=== PATIENT | female | born 1945 | race Caucasian/White ===

== ENCOUNTER 2016-10-26 10:51 | Day surgery (SDC) | payer MEDICARE ==
[2016-10-26 11:42] LABS: HEMATOCRIT 39.6 % (36.0-47.0); HEMOGLOBIN 13.1 g/dL (12.0-15.5); HGB HCT DIFFERENCE -0.3; MEAN CORPUSCULAR HEMOGLOBIN 27.7 pg (27.0-33.4); MEAN CORPUSCULAR VOLUME 84 fl (80-97); RED BLOOD COUNT 4.73 10^6/uL (3.72-5.28); RED CELL DISTRIBUTION WIDTH 13.7 % (11.5-14.0); WHITE BLOOD COUNT 11.2 10^3/uL (4.0-10.5)
[2016-10-26 12:03] LABS: BLOOD UREA NITROGEN 17 mg/dL (7-20)
[2016-10-26 16:31] VITALS: BP 126/34
== END 2016-10-26 11:15 | disposition home or self-care (01) ==
LOC: RAD 10:51
PROVIDERS: ATTEND Internal Medicine Medical Oncology
PROC: 0W9F3ZZ Drainage of Abdominal Wall, Percutaneous Approach (ICD-10-PCS; principal; 2016-10-26)
DX: R19.00 Intra-abdominal and pelvic swelling, mass and lump, unspecified site (principal); R18.8 Other ascites; C78.6 Secondary malignant neoplasm of retroperitoneum and peritoneum; C56.9 Malignant neoplasm of unspecified ovary; Z01.812 Encounter for preprocedural laboratory examination
CPT/HCPCS: 36415; 49083; 82565; 84520; 85027; 85610; 85730; 88305; 88341; 88342

== ENCOUNTER → 2016-11-03 | Day surgery (SDC) | payer MEDICARE | LOC: RAD 08:47 | PROVIDERS: ATTEND Internal Medicine Medical Oncology | PROC: 07BC3ZX Excision of Pelvis Lymphatic, Percutaneous Approach, Diagnostic (ICD-10-PCS; principal; 2016-11-03) | DX: R18.0 Malignant ascites (principal); C78.6 Secondary malignant neoplasm of retroperitoneum and peritoneum; R19.00 Intra-abdominal and pelvic swelling, mass and lump, unspecified site | CPT/HCPCS: 38505; 76942; 88172; 88305; 88313; 88341; 88342 ==

== ENCOUNTER 2016-11-08 10:04 | Day surgery (SDC) | payer MEDICARE ==
[2016-11-08 10:40] LABS: HEMATOCRIT 40.9 % (36.0-47.0); HEMOGLOBIN 13.3 g/dL (12.0-15.5); MEAN CORPUSCULAR HEMOGLOBIN 27.4 pg (27.0-33.4); MEAN CORPUSCULAR HGB CONC 32.4 g/dL (32.0-36.0); MEAN CORPUSCULAR VOLUME 85 fl (80-97); RED BLOOD COUNT 4.84 10^6/uL (3.72-5.28); RED CELL DISTRIBUTION WIDTH 14.2 % (11.5-14.0); WHITE BLOOD COUNT 14.4 10^3/uL (4.0-10.5)
[2016-11-08 10:49] LABS: PROTHROMBIN TIME 13.6 SEC (11.4-15.4)
[2016-11-08 10:50] LABS: PARTIAL THROMBOPLASTIN TIME 29.7 SEC (23.5-35.8)
[2016-11-08 11:07] LABS: BLOOD UREA NITROGEN 14 mg/dL (7-20); CREATININE RESULT 0.96 mg/dL (0.52-1.25)
[2016-11-08 13:16] VITALS: BP 130/58
== END 2016-11-08 12:45 | disposition home or self-care (01) ==
LOC: RAD 10:04
PROVIDERS: ATTEND Internal Medicine Medical Oncology
PROC: 0W9G3ZZ Drainage of Peritoneal Cavity, Percutaneous Approach (ICD-10-PCS; principal; 2016-11-08)
DX: R18.0 Malignant ascites (principal); Z79.01 Long term (current) use of anticoagulants
CPT/HCPCS: 36415; 49083; 82565; 84520; 85027; 85610; 85730

== ENCOUNTER 2016-11-21 10:58 | Day surgery (SDC) | payer MEDICARE ==
[2016-11-21 11:40] LABS: HEMATOCRIT 36.8 % (36.0-47.0); HEMOGLOBIN 12.1 g/dL (12.0-15.5); HGB HCT DIFFERENCE -0.5; MEAN CORPUSCULAR HGB CONC 32.9 g/dL (32.0-36.0); MEAN CORPUSCULAR VOLUME 82 fl (80-97); RED BLOOD COUNT 4.49 10^6/uL (3.72-5.28); RED CELL DISTRIBUTION WIDTH 14.5 % (11.5-14.0); WHITE BLOOD COUNT 2.9 10^3/uL (4.0-10.5)
[2016-11-21 11:52] LABS: PARTIAL THROMBOPLASTIN TIME 29.8 SEC (23.5-35.8); PROTHROMBIN TIME 15.4 SEC (11.4-15.4)
[2016-11-21 12:01] LABS: BLOOD UREA NITROGEN 17 mg/dL (7-20); CREATININE RESULT 0.93 mg/dL (0.52-1.25)
[2016-11-21 15:51] VITALS: BP 132/54
--- NOTE | 2016-11-21 15:52 | RADIOLOGY REPORT (SQ) ---
EXAM DESCRIPTION: U/S ABD PARACENTESIS COMPLETED DATE/TIME: 11/21/2016 2:48 pm REASON FOR STUDY: ASCITES COMPARISON None. LIMITATIONS: None. PROCEDURE: After obtaining informed consent, the patient was brought to the ultrasound suite. The p rocedure was performed with the patient on a gurney. Ultrasound was used to identify a prominent poc ket of ascites in the right lower quadrant. An appropriate access site was selected. The patient wa s prepped and draped in usual sterile fashion. The access site was anesthetized with 10 mL 1% lidoc maranda. A Fqmf-K-Kaqnftuq needle was advanced into the fluid. After aspiration of fluid the needle, t he catheter was advanced off the needle into the fluid. A total of 5,250 mL of serosanguineous fluid was removed. The patient tolerated the procedure well left the department in satisfactory condition. IMPRESSION: Successful ultrasound-guided paracentesis COMMENT: Patient medication list reviewed: Yes- Quality ID# [id number]:Eligible professional attests to doc umenting in the medical record they obtained, updated, or reviewed the patient's current medications. Quality ID #76: The patient was prepped and draped using maximum sterile barrier technique including cap, mask, sterile gown, sterile gloves, a large sterile sheet, hand hygiene, and 2% Chlorhexidine fo r cutaneous antisepsis. When ultrasound is used, sterile ultrasound techniques are followed requiring sterile gel and sterile probes. Quality ID #145: Final reports for procedures using fluoroscopy that document radiation exposure juliette floyd, or exposure time and number of fluorographic images (if radiation exposure indices are not avail able) TECHNICAL DOCUMENTATION: JOB ID: [id number] [employer]- All Rights Reserved
== END 2016-11-21 15:50 | disposition home or self-care (01) ==
LOC: RAD 10:58
PROVIDERS: ATTEND Internal Medicine Medical Oncology
PROC: 0W9G3ZZ Drainage of Peritoneal Cavity, Percutaneous Approach (ICD-10-PCS; principal; 2016-11-21)
DX: R18.0 Malignant ascites (principal); Z79.01 Long term (current) use of anticoagulants
CPT/HCPCS: 36415; 49083; 82565; 84520; 85027; 85610; 85730

== ENCOUNTER 2016-11-29 10:45 | Day surgery (SDC) | payer MEDICARE ==
[2016-11-29 11:51] LABS: HEMATOCRIT 38.8 % (36.0-47.0); HEMOGLOBIN 12.4 g/dL (12.0-15.5); HGB HCT DIFFERENCE -1.6; MEAN CORPUSCULAR HGB CONC 31.8 g/dL (32.0-36.0); MEAN CORPUSCULAR VOLUME 82 fl (80-97); RED BLOOD COUNT 4.76 10^6/uL (3.72-5.28); RED CELL DISTRIBUTION WIDTH 14.7 % (11.5-14.0); WHITE BLOOD COUNT 9.7 10^3/uL (4.0-10.5)
[2016-11-29 11:57] LABS: PROTHROMBIN TIME 15.3 SEC (11.4-15.4)
[2016-11-29 12:12] LABS: BLOOD UREA NITROGEN 7 mg/dL (7-20); CREATININE RESULT 0.81 mg/dL (0.52-1.25)
[2016-11-29 15:01] VITALS: BP 139/59
--- NOTE | 2016-11-29 17:09 | RADIOLOGY REPORT (SQ) ---
EXAM DESCRIPTION: U/S ABD PARACENTESIS COMPLETED DATE/TIME: 11/29/2016 2:28 pm REASON FOR STUDY: Malignant ASCITES COMPARISON 11/21/2016 LIMITATIONS: None. PROCEDURE: After obtaining informed consent, the patient was brought to the ultrasound suite. The p rocedure was performed with the patient on a gurney. Ultrasound was used to identify a prominent poc ket of ascites in the right lower quadrant. An appropriate access site was selected. The patient wa s prepped and draped in usual sterile fashion. The access site was anesthetized with 6 mL 1% lidoca ine. A Sldn-Y-Jwxhwnxj needle was advanced into the fluid. After aspiration of fluid the needle, th e catheter was advanced off the needle into the fluid. A total of 2,750 mL of cloudy fluid was remov ed. The patient tolerated the procedure well left the department in satisfactory condition. IMPRESSION: Successful ultrasound-guided therapeutic paracentesis COMMENT: Patient medication list reviewed: Yes- Quality ID# [id number]:Eligible professional attests to doc umenting in the medical record they obtained, updated, or reviewed the patient's current medications. Quality ID #76: The patient was prepped and draped using maximum sterile barrier technique including cap, mask, sterile gown, sterile gloves, a large sterile sheet, hand hygiene, and 2% Chlorhexidine fo r cutaneous antisepsis. When ultrasound is used, sterile ultrasound techniques are followed requiring sterile gel and sterile probes. Quality ID #145: Final reports for procedures using fluoroscopy that document radiation exposure juliette floyd, or exposure time and number of fluorographic images (if radiation exposure indices are not avail able) TECHNICAL DOCUMENTATION: JOB ID: [id number] [employer]- All Rights Reserved
== END 2016-11-29 15:10 | disposition home or self-care (01) ==
LOC: RAD 10:45
PROVIDERS: ATTEND Internal Medicine Medical Oncology
PROC: 0W9G3ZZ Drainage of Peritoneal Cavity, Percutaneous Approach (ICD-10-PCS; principal; 2016-11-29)
DX: R18.0 Malignant ascites (principal); C56.9 Malignant neoplasm of unspecified ovary; C78.6 Secondary malignant neoplasm of retroperitoneum and peritoneum; Z79.01 Long term (current) use of anticoagulants
CPT/HCPCS: 36415; 49083; 82565; 84520; 85027; 85610; 85730

== ENCOUNTER 2016-12-06 07:34 | Day surgery (SDC) | payer MEDICARE ==
[2016-12-06 08:26] LABS: HEMATOCRIT 38.5 % (36.0-47.0); HEMOGLOBIN 12.1 g/dL (12.0-15.5); HGB HCT DIFFERENCE -2.2; MEAN CORPUSCULAR HEMOGLOBIN 25.4 pg (27.0-33.4); MEAN CORPUSCULAR HGB CONC 31.3 g/dL (32.0-36.0); MEAN CORPUSCULAR VOLUME 81 fl (80-97); RED BLOOD COUNT 4.75 10^6/uL (3.72-5.28); RED CELL DISTRIBUTION WIDTH 15.5 % (11.5-14.0)
[2016-12-06 08:44] LABS: PROTHROMBIN TIME 13.1 SEC (11.4-15.4)
[2016-12-06 08:45] LABS: PARTIAL THROMBOPLASTIN TIME 27.3 SEC (23.5-35.8)
[2016-12-06 08:52] LABS: CREATININE RESULT 0.75 mg/dL (0.52-1.25)
--- NOTE | 2016-12-06 11:23 | RADIOLOGY REPORT (SQ) ---
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 LIMITATIONS: None. FINDINGS: ASCITES: Trace ascites identified. No pocket large enough for paracentesis was located to day. OTHER: No other significant finding. IMPRESSION: Trace ascites. No paracentesis performed. TECHNICAL DOCUMENTATION: JOB ID: [id number] [employer]- All Rights Reserved
[2016-12-06 11:57] VITALS: BP 123/60
== END 2016-12-06 10:52 | disposition home or self-care (01) ==
LOC: RAD 07:34
PROVIDERS: ATTEND Internal Medicine Medical Oncology
DX: C78.6 Secondary malignant neoplasm of retroperitoneum and peritoneum (principal); C56.9 Malignant neoplasm of unspecified ovary; R18.0 Malignant ascites; Z53.8 Procedure and treatment not carried out for other reasons; Z79.01 Long term (current) use of anticoagulants
CPT/HCPCS: 36415; 76705; 82565; 84520; 85027; 85610; 85730

== ENCOUNTER → 2017-01-04 | Outpatient (CLI) | payer MEDICARE ==
--- NOTE | 2017-01-04 13:55 | RADIOLOGY REPORT (SQ) ---
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 Images reviewed with lung, soft tissue and bone windows. Reconstructed coronal a nd sagittal MPR images reviewed. All images stored on PACS. CT scan of the abdomen and pelvis performed with intravenous and with oral contrastusing helical scan bernardo technique with dynamic intravenous contrast injection. Images reviewed with lung, soft tissue a nd bone windows. Reconstructed coronal and sagittal MPR images reviewed. Delayed images for evaluat ion of the urinary system also acquired and evaluated. All images stored on PACS. All CT scanners at this facility use dose modulation, iterative reconstruction, and/or weight based d osing when appropriate to reduce radiation dose to as low as reasonably achievable (ALARA). [facility]: Dose Right [facility]: CareDose [facility]: Dose Right [facility]: Teradose 4D [facility]: Smart [employer] RADIATION DOSE: Up-to-date CT equipment and radiation dose reduction techniques were employed. CTDIv ol: 6.3 - 17.2 mGy. DLP: 2580 mGy-cm. . LIMITATIONS: None. FINDINGS: CHEST: LUNGS AND PLEURA: No opacities, nodules, masses. No pneumothorax. No effusions. HILAR AND MEDIASTINAL STRUCTURES: No identified masses or abnormal nodes. Old calcified lymph nodes left hilum from prior granulomatous disease. HEART AND VASCULAR STRUCTURES: No aneurysm or dissection. No central pulmonary emboli. No pericardi al effusion. HARDWARE: None. THYROID AND OTHER SOFT TISSUES: No masses. No adenopathy. BONES: No significant finding. OTHER: No other significant finding. ABDOMEN AND PELVIS: LIVER: Normal size. No masses. No dilated ducts. There is a 10 x 4.5 cm rind of tissue between the right hemidiaphragm and dome of the liver normal best shown on chest CT axial image 14, coronal image 55, and sagittal image 18. Small amount of right upper quadrant free fluid under the right hemidiap hragm. SPLEEN: Normal size. No focal lesions. PANCREAS: No masses. No significant calcifications. No adjacent inflammation or peripancreatic fluid collections. Pancreatic duct not dilated. GALLBLADDER: No identified stones by CT criteria. No inflammatory changes to suggest cholecystitis. ADRENAL GLANDS: No significant masses or asymmetry. RIGHT KIDNEY AND URETER: No solid masses. No significant calcification. No hydronephrosis or hydroure ter. LEFT KIDNEY AND URETER: No solid masses. No significant calcification. No hydronephrosis or hydrouret er. AORTA AND VESSELS: No aneurysm. No dissection. Renal arteries, SMA, celiac without stenosis. RETROPERITONEUM: No retroperitoneal adenopathy, hemorrhage or masses. BOWEL AND PERITONEAL CAVITY: There is a free edge of omental tumor 8 x 2.2 cm on axial image 63. The re is umbilical hernia containing mesenteric fat and tumor, 2.4 x 2.1 [address] in size[address] No CT evidence of bowel obstruction, appendicitis or diverticulitis. Sigmoid and descending colon di verticuli are present without inflammation. No bowel obstruction. There is trace right pelvic cul-de-sac free fluid. APPENDIX: Normal. ABDOMINAL WALL: Small umbilical hernia containing mesenteric/ omental fat with tumor BONES: No significant or acute findings. PELVIS: A 10 x 8.6 cm mass is present in the right pelvis along the adnexum/right uterus which is eit her a primary ovarian mass or large fibroid. Overall, the uterus is heterogeneous with multiple fibr oids, 8 x 5.1 cm in size. Left ovary not definitely seen. Small amount of right lower quadrant/pelv ic cul-de-sac fluid. IMPRESSION: Unremarkable CT chest Peritoneal implants under the right hemidiaphragm, and along the omentum/umbilical hernia soft tissue . Trace ascites in the right upper quadrant and right lower quadrant. No bulky intra-abdominal or pelvic adenopathy. No hydronephrosis/ hydroureter. No bowel obstruction . TECHNICAL DOCUMENTATION: JOB ID: [id number] Quality ID # [id number]: Final reports with documentation of one or more dose reduction techniques (e.g., Au tomated exposure control, adjustment of the mA and/or kV according to patient size, use of iterative reconstruction technique) 2010 [facility] [employer]- All Rights Reserved
== END ==
LOC: RAD 09:27
PROVIDERS: ATTEND Internal Medicine Medical Oncology
DX: C56.9 Malignant neoplasm of unspecified ovary (principal); C78.6 Secondary malignant neoplasm of retroperitoneum and peritoneum; R10.9 Unspecified abdominal pain; R10.2 Pelvic and perineal pain
CPT/HCPCS: 71260; 74177

== ENCOUNTER → 2017-07-11 | Outpatient (CLI) | payer MEDICARE ==
--- NOTE | 2017-07-11 11:45 | RADIOLOGY REPORT (SQ) ---
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 Images reviewed with lung, soft tissue and bone windows. Reconstructed coronal a nd sagittal MPR images reviewed. All images stored on PACS. CT scan of the abdomen performed with intravenous and with oral contrastusing helical scanning techni que with dynamic intravenous contrast injection. Images reviewed with lung, soft tissue and bone win dows. Reconstructed coronal and sagittal MPR images reviewed. Delayed images for evaluation of the urinary system also acquired and evaluated. All images stored on PACS. All CT scanners at this facility use dose modulation, iterative reconstruction, and/or weight based d osing when appropriate to reduce radiation dose to as low as reasonably achievable (ALARA). [facility]: Dose Right [facility]: CareDose [facility]: Dose Right [facility]: Teradose 4D [facility]: [employer] RADIATION DOSE: CT Rad equipment meets quality standard of care and radiation dose reduction techniq ues were employed. CTDIvol: 6.4 - 8.0 mGy. DLP: 833 mGy-cm. . LIMITATIONS: None. FINDINGS: CHEST: LUNGS AND PLEURA: No opacities, nodules, masses. No pneumothorax. No effusions. HILAR AND MEDIASTINAL STRUCTURES: A 2 x 1.6 cm nodule is present along the right lateral aspect of th e distal esophagus on image 42. This is new compared to 04/24/2017. HEART AND VASCULAR STRUCTURES: No aneurysm or dissection. No central pulmonary emboli. No pericardi al effusion. HARDWARE: Right-sided permanent central line tip superior vena cava THYROID AND OTHER SOFT TISSUES: No masses. No adenopathy. BONES: No significant finding. OTHER: Small hiatal hernia ABDOMEN AND PELVIS: LIVER: Between the liver and right hemidiaphragm, there is a peritoneal implants on abdomen scanned i mage 12, 4.2 x 3.3 cm in size, this is larger than 04/24/2017 where this measured about 2.1 x 1.4 cm in size. The liver itself demonstrates no discrete cystic or solid lesions. SPLEEN: Normal size. No focal lesions. PANCREAS: No masses. No significant calcifications. No adjacent inflammation or peripancreatic fluid collections. Pancreatic duct not dilated. GALLBLADDER: No identified stones by CT criteria. No inflammatory changes to suggest cholecystitis. ADRENAL GLANDS: No significant masses or asymmetry. RIGHT KIDNEY AND URETER: No solid masses. No significant calcification. No hydronephrosis or hydroure ter. LEFT KIDNEY AND URETER: No solid masses. No significant calcification. No hydronephrosis or hydrouret er. AORTA AND VESSELS: No aneurysm. No dissection. Renal arteries, SMA, celiac without stenosis. RETROPERITONEUM: No retroperitoneal adenopathy, hemorrhage or masses. BOWEL AND PERITONEAL CAVITY: There is a new peritoneal implant in the right upper quadrant, between t he left lobe liver and hepatic flexure of colon. This is 2.8 x 2 cm in size, best shown on axial zenia ge 30 and coronal image 22. Heavy burden of colonic diverticuli along the transverse and descending colon. No CT evidence of bowel obstruction. No ascites. APPENDIX: Not in the field of view ABDOMINAL WALL: Paraumbilical soft tissue nodule in the anterior abdominal wall biopsied on 11/03/2016 is no longer identified. BONES: No significant or acute findings. OTHER: No other significant finding. IMPRESSION: New nodule in the posterior mediastinum adjacent to the esophagus, new nodule in the rig ht upper quadrant peritoneal space between the liver and hepatic flexure of colon. Increase in size of peritoneal implant between the posterior right lobe liver and right hemidiaphragm . TECHNICAL DOCUMENTATION: JOB ID: [id number] Quality ID # 436: Final reports with documentation of one or more dose reduction techniques (e.g., Au tomated exposure control, adjustment of the mA and/or kV according to patient size, use of iterative reconstruction technique) 2010 [employer]- All Rights Reserved
== END ==
LOC: RAD 09:34
PROVIDERS: ATTEND Internal Medicine Medical Oncology
DX: C48.2 Malignant neoplasm of peritoneum, unspecified (principal)
CPT/HCPCS: 71260; 74160; 82565

== ENCOUNTER → 2017-10-29 | Outpatient (CLI) | payer MEDICARE ==
--- NOTE | 2017-10-30 09:23 | RADIOLOGY REPORT (SQ) ---
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 TECHNIQUE: Blood glucose level was verified. Above dose of FDG was injected intravenously. 2-D seg mented attenuation correction images were obtained from the base of the skull to the midthighs. Nonc ontrast CT images were obtained for attenuation correction and fusion with emission images. CT image s were performed without oral or intravenous contrast and are not sensitive for parenchymal lesions. A series of overlapping emission PET images were obtained. Images reviewed and manipulated at [facility] work station by the radiologist. Images stored on PACS. LIMITATIONS: None. FINDINGS: HEAD AND NECK: No areas of abnormal metabolic activity in the soft tissues of the head and neck. CHEST: Near the diaphragmatic hiatus, a 4.2 x 4.2 cm soft tissue nodule is present along the rightwar d lateral aspect of the distal esophagus axial image 119 with SUV 13.2 (was 2 x 1.6 cm in size 07/11/19 18). ABDOMEN AND PELVIS: Between the liver and right hemidiaphragm, a 3.7 x 2.7 cm predominantly cystic lesion is present with a small metabolically active mural nodule with SUV of 5 (was 4.2 x 3.[address] 07/11/2017). There are now multiple new peritoneal implants along the lesser sac/pancreatic tail/splenic hilum, al leopoldo the right pericolic gutter, and midline anterior peritoneal surface. These have Hounsfield units of 12 to 15. No ascites. Between the left lobe liver and hepatic flexure, a 5 x 4.5 cm peritoneal implant is present with SUV 8.4 (was 2.8 x 2 cm on 07/11/2017). In the midline anterior peritoneal surface a 2.9 x 2.2 cm nodule is present on axial image 191 with S UV of 15. This is new compared to previous exams. A 1.9 x 1.3 cm aortocaval lymph node is present on axial image 175 with SUV 9.9. This is new compare d to previous studies. PROXIMAL LOWER EXTREMITIES: No areas of abnormal metabolic activity in the soft tissues of the lower extremities. BONES: No abnormal metabolic activity in the visualized skeleton. ADDITIONAL CT FINDINGS: Right-sided permanent central line tip superior vena cava. Hiatal hernia. O pacified left maxillary sinus. Colonic diverticuli without CT signs of acute diverticulitis. Post h ysterectomy. OTHER: Liver background activity 2.2 SUV. Blood pool background activity 1.7 SUV. IMPRESSION: Progression of disease compared to previous exams TECHNICAL DOCUMENTATION: JOB ID: [id number] [employer]- All Rights Reserved Reading location - IP/workstation name: [email or web address]
== END ==
LOC: RAD 14:57
PROVIDERS: ATTEND Internal Medicine Medical Oncology
DX: C48.2 Malignant neoplasm of peritoneum, unspecified (principal)
CPT/HCPCS: 78815; A9552

== ENCOUNTER → 2018-01-16 | Outpatient (CLI) | payer MEDICARE ==
--- NOTE | 2018-01-17 09:03 | RADIOLOGY REPORT (SQ) ---
EXAM DESCRIPTION: PET CT SKULL/THIGH COMPLETED DATE/TIME: 01/16/2018 7:41 pm REASON FOR STUDY: MALIGNANT NEOPLASM OF PERITONEUM, UNSPECIFIED C48.2 MALIGNANT NEOPLASM OF PERITON EUM, UNSPECIFIED COMPARISON: PET-CT 10/29/2017 CT chest abdomen pelvis 07/11/2017, 04/24/2017 RADIONUCLIDE AND DOSE: 9.9 mCi F18 FDG The route of agent administration: Intravenous FASTING BLOOD SUGAR: 97 mg/dl CONTRAST TYPE AND DOSE: No CT contrast given. TECHNIQUE: Blood glucose level was verified. Above dose of FDG was injected intravenously. 2-D seg mented attenuation correction images were obtained from the base of the skull to the midthighs. Nonc ontrast CT images were obtained for attenuation correction and fusion with emission images. CT image s were performed without oral or intravenous contrast and are not sensitive for parenchymal lesions. A series of overlapping emission PET images were obtained. Images reviewed and manipulated at [facility] work station by the radiologist. Images stored on PACS. LIMITATIONS: None. FINDINGS: HEAD AND NECK: No areas of abnormal metabolic activity in the soft tissues of the head and neck. CHEST: No areas of abnormal metabolic activity in the chest. ABDOMEN AND PELVIS: Since the prior PET-CT exam and prior CT exams, patient has developed moderate as cites, with multiple low-density peritoneal implant masses with SUV ranging from 9 to 14. Index lesi on is a mass between the spleen and splenic flexure of colon today 7.6 x 6 cm in size (was 5 x 4.5 cm on 10/29/2017). PROXIMAL LOWER EXTREMITIES: No areas of abnormal metabolic activity in the soft tissues of the lower extremities. BONES: No abnormal metabolic activity in the visualized skeleton. ADDITIONAL CT FINDINGS: Post appendectomy. Colonic diverticuli without CT signs of diverticulitis. Post hysterectomy. Right permanent central line tip superior vena cava. Hiatal hernia. Chronic opa cification left maxillary sinus OTHER: Liver background SUV 1.0. Blood pool background activity 0.73 IMPRESSION: Progression of disease with increase in burden of peritoneal soft tissue implants. New ascites. TECHNICAL DOCUMENTATION: JOB ID: [id number] [employer]- All Rights Reserved Reading location - IP/workstation name: [facility]
== END ==
LOC: RAD 16:43
PROVIDERS: ATTEND Internal Medicine Medical Oncology
DX: C48.2 Malignant neoplasm of peritoneum, unspecified (principal)
CPT/HCPCS: 78815; A9552

== ENCOUNTER → 2018-01-22 | Outpatient (CLI) | payer MEDICARE ==
--- NOTE | 2018-01-22 10:32 | RADIOLOGY REPORT (SQ) ---
EXAM DESCRIPTION: U/S ABDOMEN LIMITED W/O DOP COMPLETED DATE/TIME: 01/22/2018 10:14 am REASON FOR STUDY: ASCITES R18.0 MALIGNANT ASCITES COMPARISON: None. TECHNIQUE: Limited Static and real time gallego scale imaging performed of the 4 abdominal quadrants an d the midline. LIMITATIONS: None. FINDINGS: ASCITES: Very small amount in the left lower quadrant. Insufficient volume for safe parac entesis. OTHER: No other significant finding. IMPRESSION: Insufficient volume for safe paracentesis. TECHNICAL DOCUMENTATION: JOB ID: [id number] [employer]- All Rights Reserved Reading location - IP/workstation name: [email or web address]
== END ==
LOC: RAD 07:45 → EDSTATUS 09:57
PROVIDERS: ATTEND Internal Medicine Medical Oncology
DX: R18.0 Malignant ascites (principal)
CPT/HCPCS: 76705